=== PATIENT | male | born 1965 ===

== ENCOUNTER 2018-06-14 09:54 | Outpatient (CLI) | payer OTHER ==
[~2018-06-14 09:54] MED LIST: DOLOGEN CAPLET1 EACH PO; TRAMADOL HCL-AP1 TAB PO
== END 2018-06-14 10:05 | disposition home or self-care (01) ==
LOC: RAD 09:54 → RX STUDY 09:54 → RAD 10:05 → TOM 10:15
DX: R10.13 Epigastric pain (principal)